=== PATIENT | male | born 1945 ===

== ENCOUNTER 2025-03-27 04:20 | Emergency (ER) | payer MEDICARE, BC, SELFPAY ==
[2025-03-27 04:25] VITALS: BMI 28.4
[2025-03-27 04:26] VITALS: BP 138/61
[2025-03-27 05:00] VITALS: BP 123/57
--- NOTE | 2025-03-27 05:06 | ED.GENMED ---
History of Present Illness
General
Chief Complaint: Nose Bleed
Source: patient
Exam Limitations: none
Time Seen by Provider: 03/27/25 04:49
Nursing documentation reviewed up to this point in time: agreed with
History of Present Illness
History of Present Illness:
Patient presents to ED secondary to persistent nosebleed over the past 3 hours. Denies trauma. Denies recent change in medications. Patient does take 81 mg aspirin daily. Patient states that he has had nosebleed over the years, but has never
lasted this long. Denies dizziness. Denies weakness. Denies shortness of breath. Denies nausea or vomiting. Patient is currently taking amoxicillin for upper respiratory infection, with improvement
Review of Systems
Review of Systems
Allergies reviewed?: Yes
All Other Systems: ROS reviewed and negative except as documented in HPI and ROS
Constitutional: Reports no symptoms
EENT: Reports other (Nosebleed)
Respiratory: Reports no symptoms; Denies trouble breathing
Cardiac: Reports no symptoms; Denies chest pain
ABD/GI: Reports no symptoms; Denies nausea or vomiting
Skin: Reports no symptoms
Neurological: Denies dizzy, headache or weakness
Phy Exam
Physical Exam
Physical Exam:
Physical Exam
General: mild distress, not acutely ill. afebrile
Head: nc/at. eomi
Neck: supple. no meningeal signs. normal posterior pharynx. nonpulsatile bleeding noted in left naris
Abdomen: normal bowel sounds. not tender.
Neuro: alert and oriented x 3. no focal neurological deficits
Skin: no rash
Psychiatric: well kept. interactive and cooperative
Extremities: no edema. no calf tenderness.
Course
Orders/Labs/Results
Orders:
Orders
03/27/25 04:36
Tranexamic Acid 1,000 mg .ROUTE .STK-MED ONE
Vital Signs
Initial and Last Documented VS:
Initial Vital Signs
Pulse Resp BP Pulse Ox
78 18 138/61 98
03/27/25 04:26 03/27/25 04:26 03/27/25 04:26 03/27/25 04:26
Last Documented Vital Signs
Temp Pulse Resp BP Pulse Ox
98.4 F 68 18 134/57 98
03/27/25 06:24 03/27/25 06:24 03/27/25 06:24 03/27/25 06:24 03/27/25 06:24
Procedures
Nosebleed
Drug treatment: Lidocaine and Tranexamic Acid
Treatment: local pressure applied and Epistat nasal catheter
Post treatment bleeding: none- good control
MDM/Problems Addressed
MDM/Problems Addressed:
Patient evaluated immediately upon arrival due to significant epistaxis not improved with, local pressure. After initial evaluation, Rhino rapid nasal packing applied with continual bleeding. Rhino nasal packing removed and Merisel applied, with
continual bleeding. At that time, residual blood clot removed and bilateral nasal packing reapplied after application with TXA. Afterwards, significant reduction in bleeding noted. Additional dose of TXA provided onto existing Rhino nasal
packing. Patient observed for over 1 hour afterwards, without further bleeding. As such, patient will be discharged home in stable condition, with referral to ENT for outpatient consultation. Patient without any symptoms concerning for
significant acute blood loss at this time. Patient is otherwise afebrile, hemodynamically stable, and appears comfortable, at time of discharge, to the care of his spouse.
*Pulse Oximetry
SaO2: 98
Oxygen Mode of Delivery: Room air
Patient hypoxic: no
*Critical Care Note
Total Time (30-74mins, 75-104mins- exclusive of procedures): Not Applicable
ED Attending Note
-
Portions of this chart may have been created with voice recognition software.� Occasional wrong word or��sound alike� substitutions may have occurred due to the inherent limitations of voice recognition software.
Discharge Plan
Departure
Patient Disposition: Home (Routine Discharge)
Date of Disposition: 03/27/25
Time of Disposition: 05:52
Patient with high blood pressure during this ER visit?: Yes
Condition: Fair
Discharge Problem:
Epistaxis
Instructions: Nosebleeds (DC)
Referrals:
Wayne Rodriguez MD [Active, Otology]
Zeeshan Alberto MD [Active, Otology]
Activity Restrictions/Additional Instructions:
As discussed, please follow-up with referred ENT physician for reevaluation. Please consider return to ED with worsening symptoms.
Interventions
Interventions:
*Risk Screen - Suicide Last Done: 03/27/25 04:26
*General Assessment Last Done: 03/27/25 04:26
*Neglect/Abuse Screening Last Done: 03/27/25 04:26
*ED- Fall Risk Assessment Last Done: 03/27/25 04:26
*ED COVID-19 Vaccine History Last Done: 03/27/25 04:26
*Nursing Disposition Last Done: 03/27/25 06:24
ED-EENT Assessment Last Done: 03/27/25 04:26
Discharge Date and Time
Discharge Date/Time: 03/27/25 06:15
Print Language: DJIBOUTIAN
--- NOTE | 2025-03-27 06:21 | EDRN ---
Reviewed discharge instructions with patient. Verbalized understanding. Ambulated with steady gait to the lobby.
[2025-03-27 06:24] VITALS: BP 134/57
== END 2025-03-27 06:15 | disposition home or self-care (01) ==
LOC: EMR 04:20
PROVIDERS: EMERGENCY PHYSICIAN Emergency Medicine; FAMILY PHYSICIAN Internal Medicine
DX: R04.0 Epistaxis (principal); I10 Essential (primary) hypertension; E78.5 Hyperlipidemia, unspecified; M19.90 Unspecified osteoarthritis, unspecified site; Z95.2 Presence of prosthetic heart valve; Z95.1 Presence of aortocoronary bypass graft
CPT/HCPCS: 99283; 30901